=== PATIENT | male | born 1985 | race Caucasian/White ===

== ENCOUNTER 2017-09-26 10:28 | Emergency (ER) | payer OTHER ==
[~2017-09-26] VITALS: Ht 188 cm; Wt 79.5 kg
[2017-09-26 10:36] VITALS: BP 145/77; PULSE 92; RESP 16; TEMP 97.5; O2SAT 97
[2017-09-26] MEDS ORDERED: LIDOCAINE HCL 1% 30 ML VIAL INFIL ONE (11:30)
--- NOTE | 2017-09-26 11:33 | PD ---
HPI Chief Complaint: Injury Time Seen by Provider: 11:26 Travel History International Travel<30 days: No Contact w/Intl Traveler<30days: No Traveled to known affect area: No History of Present Illness HPI 32-year-old right-hand dominant male presents to ED for evaluation of left thumb injury. The patient states that he was playing basketball and the ball jammed into his thumb. He endorses limitations to range of motion. He denies numbness, tingling, weakness, previous injury. Pain is described as throbbing, rated 8/10, worsened by attempted ROM. He drove himself to the emergency room today. No treatment attempted at home. States last tetanus radiation was within about 2-3 years. [facility] Past Medical History Medical History: Denies Significant Hx Hx Anticoagulant Therapy: No Diminished Hearing: No Tetanus Vaccination: < 5 Years Past Surgical History Surgical History: No Previous Surgery Social History Alcohol Use: Yes (SOC) Tobacco Use: No Substance Use: No Allergies-Medications (Allergen,Severity, Reaction): Coded Allergies: No Known Allergies (Unverified , 09/26/17) Reported Meds & Prescriptions Reported Meds & Active Scripts Active Ibuprofen 600 Mg Tab 600 Mg PO Q8H PRN Review of Systems Except as stated in HPI: all other systems reviewed are Neg Physical Exam Narrative GENERAL: Well-nourished, well-developed white male in no acute distress. SKIN: Focused skin assessment warm/dry. HEAD: Normocephalic. EYES: No scleral icterus. No injection or drainage. NECK: Supple, trachea midline. No JVD or lymphadenopathy. CARDIOVASCULAR: Regular rate and rhythm without murmurs, gallops, or rubs. RESPIRATORY: Breath sounds equal bilaterally. No accessory muscle use. GASTROINTESTINAL: Abdomen soft, non-tender, nondistended. MUSCULOSKELETAL: No cyanosis, or edema. FOCUSED LEFT UPPER EXTREMITY EXAM: 2+ radial pulse. The thumb is visibly deformed, suspect dislocation at the DIP joint. There is a 1cm laceration of the palmar aspect of the thumb. Cap refill less than 2 seconds. Sensation intact to light touch distally. Otherwise retains full, painless ROM of the joints of the hand and wrist. BACK: Nontender without obvious deformity. No CVA tenderness. Data Data Last Documented VS Vital Signs Date Time Temp Pulse Resp B/P (MAP) Pulse Ox O2 Delivery O2 Flow Rate FiO2 09/26/17 10:36 97.5 92 16 145/77 (99) 97 Orders Orders Finger ([id number]) (09/26/17 11:29) Ice/Cold Pack (09/26/17 11:29) Splint Or Brace Apply/Monitor (09/26/17 11:42) Lidocaine Pf 1% Inj (Xylocaine-Mpf 1% In (09/26/17 12:00) Finger ([id number]) (09/26/17 12:45) Ibuprofen (Motrin) (09/26/17 13:30) Ed Discharge Order (09/26/17 13:41) Fiberglass Thumb Spica Adult (09/26/17 ) MDM Medical Decision Making Medical Screen Exam Complete: Yes Emergency Medical Condition: Yes Differential Diagnosis Dislocation versus fracture versus laceration versus ligamentous injury versus other Narrative Course 32-year-old right-hand dominant male presents to ED for evaluation of left thumb injury. The patient states that he was playing basketball and the ball jammed into his thumb. He drove himself to the emergency room today. States tetanus up-to-date. Vitals reviewed. On exam there is a laceration of the palmar side of the distal aspect of the left thumb as well as visible deformity. I suspect dislocation, , x-ray confirms this. Reduction and laceration repair were performed. Please see my procedure notes for details. The patient was placed in a thumb spica and instructed to follow-up with the hand surgeon this week. He was provided with Dr. Bergeron's contact information. He should have his sutures removed in 10-14 days. We discussed signs of infection and reasons to return to the ED. 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 He is stable and discharged home. Procedures Procedure Narrative LACERATION LOCATION: [place]ar aspect left thumb LENGTH: 2.5 cm NUMBER OF STITCHES/AMAURI: 4 REPAIR: The area of the laceration was prepped with Betadine and sterilely draped. Did a block was performed with 1% lidocaine. Adequate anesthesia was obtained. The wound was copiously irrigated and explored without evidence of foreign body, tendon injury or neurovascular injury. The wound was closed using 5-0 Prolene. This was a single layer repair. A sterile dressing was applied. The patient was advised to keep the dressing clean and dry. Patient tolerated the procedure well. Reduction of dislocation PIP joint left thumb: Digital block was performed. She couldn't anesthesia was obtained. With the help of the classroom technology coach who provided countertraction I applied distraction and dorsal pressure. A pop was heard as the bone returned to near anatomical position. Patient was able to flex and extend the distal tip of the thumb against resistance. Thumb spica cast was applied. Patient tolerated procedure well. Diagnosis Primary Impression: Laceration of left thumb Qualified Codes: S61.012A - Laceration without foreign body of left thumb without damage to nail, initial encounter Additional Impression: Dislocation of interphalangeal joint of left thumb, initial encounter Referrals: Lee Bergeron III, MD Patient Instructions: Care For Your Stitches (ED), General Instructions, Thumb Fracture (ED) Additional Instructions: Rest, ice, elevate the extremity. Apply ice no longer than 10-15 minutes per hour a few times a day. 800 mg ibuprofen up to 3 times a day as needed to reduce pain and inflammation. Do not remove the splint until evaluated by the hand surgeon. Suture removal in 10-14 days. Monitor the wound for signs of infection, return to the ED for evaluation should these occur. Return to the ED for any urgent or emergent medical condition. Med/Other Pt SpecificInfo: Prescription(s) given Scripts Ibuprofen (Ibuprofen) 600 Mg Tab 600 MG PO Q8H Y for PAIN, #15 TAB 0 Refills Prov: Shan Barnes MD 09/26/17 Disposition: 01 DISCHARGE HOME Condition: Stable Christin Christianson Sep 26, 2017 11:33
--- NOTE | 2017-09-26 11:47 | RADRPT ---
EXAM DATE/TIME: 09/26/2017 11:33 [facility] COMPARISON: No previous studies available for comparison. INDICATIONS : Left first digit pain after injuring during basketball. MEDICAL HISTORY : None. SURGICAL HISTORY : None. ENCOUNTER: Initial ACUITY: 1 day PAIN SCORE: 9/10 LOCATION: Left middle thumb FINDINGS: Examination of the first digit of the left hand demonstrates no evidence of fracture. Dislocation of the interphalangeal joint of the first digit. Distal phalanx dislocated posteriorly. No radiopaque f oreign bodies are seen. The soft tissues are intact. CONCLUSION: Dislocation of the interphalangeal joint of the thumb Chavo Rowe MD on September 26, 2017 at 11:44 Board Certified Radiologist. This report was verified electronically.
[2017-09-26] MEDS ORDERED: LIDOCAINE HCL 1% PF 10 ML VIAL INFIL ONE (12:00)
[2017-09-26] MEDS ORDERED: IBUP-232 PO (13:24)
[2017-09-26] MEDS ORDERED: IBUPROFEN 600 MG TAB PO ONE (13:30)
--- NOTE | 2017-09-26 13:42 | RADRPT ---
EXAM DATE/TIME: 09/26/2017 12:55 [facility] COMPARISON: FINGER LEFT 1ST DIGIT ([id number]), September 26, 2017, 11:33. INDICATIONS : Post reduction left 1st digit. MEDICAL HISTORY : None. SURGICAL HISTORY : None. ENCOUNTER: Subsequent ACUITY: 1 day PAIN SCORE: 4/10 LOCATION: Left 1st digit FINDINGS: Anatomic alignment. The splint does not cover the DIP joint. CONCLUSION: Anatomic alignment. Roosevelt Sun MD FACR on September 26, 2017 at 13:39 Board Certified Radiologist. This report was verified electronically.
[2017-10-01] MEDS ORDERED: CEPH-460 PO (10:39)
== END 2017-09-26 13:49 | disposition home or self-care (01) ==
LOC: PHEFT 10:28
DX: S63.125A Dislocation of interphalangeal joint of left thumb, initial encounter (principal); S61.012A Laceration without foreign body of left thumb without damage to nail, initial encounter; W21.05XA Struck by basketball, initial encounter; Y93.67 Activity, basketball
CPT/HCPCS: 12001; 26641; 64450; 73140; 99283; L3808